=== PATIENT | female | born 1955 | race Caucasian/White ===

== ENCOUNTER 2016-07-17 14:12 | Emergency (ER) | payer SELFPAY ==
[2016-07-17 14:20] VITALS: BP 146/84
[2016-07-17] MEDS ORDERED: predniSONE TAB* 20 MG PO ONE (15:29)
--- NOTE | 2016-07-17 15:32 | UC ---
Allergic Reaction HPI - HPI Summary HPI Summary: WAS WORKING IN [employer] WHEN HAD SUDDEN ONSET OF FACIAL FLUSHING, PALPITATIONS AND HANDS FELT SWOLLEN AND HOT. UPPER LIP FELT TINGLY. NO RESPIRATORY DISTRESS. NO KNOWN TRIGGERING EXPOSURE. - History of Current Complaint Chief Complaint: UCAllergicReaction Stated Complaint: ALLERGIC REACTION Time Seen by Provider: 07/17/16 15:18 Hx Obtained From: Patient Hx Last Menstrual Period: hysterectomy Onset/Duration: Sudden Onset, Lasting Hours, Resolved - SYMPTOMS ALMOST COMPLETELY RESOLVED ABOUT AN HOUR AFTER ONSET Severity Initially: Moderate Severity Currently: Mild Pain Intensity: 4 Pain Scale Used: 0-10 Numeric Aggrevating Factor(s): Nothing Alleviating Factor(s): Nothing - SPONTANEOUS RESOLUTION Associated Signs And Symptoms: Negative: Abdominal Pain, Chest Pain, Diaphoresis , Difficulty Breathing, Nausea, Throat Tightening, Vomiting - Allergies/Home Medications Allergies/Adverse Reactions: Allergies Allergy/AdvReac Type Severity Reaction Status Date / Time No Known Allergies Allergy Verified 05/18/14 13:42 PMH/Surg Hx/FS Hx/Imm Hx Previously Healthy: Yes Endocrine History Of: Denies: Diabetes, Thyroid Disease Cardiovascular History Of: Denies: Cardiac Disorders, Hypertension Respiratory History Of: Denies: COPD, Asthma GI/ History Of: Denies: Ulcer Cancer History Of: Denies: Breast Cancer - Surgical History Surgical History: Yes Surgery Procedure, Year, and Place: hysterectomy 1995. 1984 bowel obstruction - surgical repair. jun 16 ap repair 2013 - Family History Known Family History: Positive: Hypertension, Diabetes - Social History Alcohol Use: Occasionally Substance Use Type: None Smoking Status (MU): Never Smoked Tobacco - Immunization History Most Recent Influenza Vaccination: 2016 Review of Systems Constitutional: Negative Skin: Other - FACIAL ERYTHEMA Respiratory: Negative Cardiovascular: Palpitations Gastrointestinal: Negative Genitourinary: Negative Musculoskeletal: Edema - HANDS All Other Systems Reviewed And Are Negative: Yes Physical Exam Triage Information Reviewed: Yes Appearance: Well-Appearing, No Pain Distress, Well-Nourished Vital Signs: Initial Vital Signs Temp 97.3 F 07/17/16 14:16 Pulse 98 07/17/16 14:16 Resp 18 07/17/16 14:16 BP 146/84 07/17/16 14:16 Pulse Ox 99 07/17/16 14:16 Vital Signs Reviewed: Yes Eyes: Positive: Conjunctiva Clear ENT: Positive: Hearing grossly normal, Pharynx normal Neck: Positive: Supple, Nontender, No Lymphadenopathy Respiratory Exam: Normal Cardiovascular Exam: Normal Abdomen Description: Positive: Soft Musculoskeletal: Positive: No Edema - NO SWELLING OF HANDS OR LIPS Neurological: Positive: Alert Psychological: Positive: Age Appropriate Behavior Skin: Positive: Other - CHEEKS MILDLY FLUSHED.. Negative: rashes Allergic Reaction Course/Dx - Differential Dx/Diagnosis Provider Diagnoses: ALLERGIC REACTION Discharge - Discharge Plan Condition: Stable Disposition: HOME Prescriptions: predniSONE TAB* [Deltasone TAB*] 40 mg PO DAILY #80 tab Patient Education Materials: General Allergic Reaction (ED) Referrals: Kyree Gupta MD [Primary Care Provider] - If Needed Additional Instructions: GO TO THE ER WITHOUT FAIL IF YOUR SYMPTOMS RECUR. TAKE PREDNISONE DAILY. CONTINUE YOUR ANTIHISTAMINE DAILY.
== END 2016-07-17 15:48 | disposition home or self-care (01) ==
LOC: UCEAST 14:12
DX: T78.40XA Allergy, unspecified, initial encounter (principal); X58.XXXA Exposure to other specified factors, initial encounter; R23.2 Flushing; R03.0 Elevated blood-pressure reading, without diagnosis of hypertension
CPT/HCPCS: 99212; G0463; J7512

== ENCOUNTER 2016-11-20 07:20 | Day surgery (SDC) | payer BC ==
--- NOTE | 2016-11-11 22:11 | HP ---
PREOPERATIVE HISTORY AND PHYSICAL: DATE OF OFFICE VISIT/ENCOUNTER: 11/11/16 DATE OF ADMISSION: 11/20/16 [facility] ATTENDING SURGEON: Donna Ellsworth MD (DICTATED BY CYNDI LANGFORD) PROCEDURE: Left wrist de Quervain's release. CHIEF COMPLAINT: Left wrist pain. HISTORY OF PRESENT ILLNESS: This is a 60-year-old female who has had radial- sided left wrist pain since June of 2016. 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 She denies any direct injury to this wrist. It bothers her when she extends her thumb. She denies any numbness or tingling associated with it. She has failed conservative treatment including cortisone injection and Voltaren gel. At this point, she would like to proceed with more definitive treatment for this problem and has agreed to proceed with a left wrist de Quervain's release. PAST MEDICAL HISTORY: 1. Hypertension. 2. Irritable bowel syndrome. 3. Seasonal allergies. PAST SURGICAL HISTORY: 1. Tonsillectomy. 2. Partial hysterectomy. 3. Cholecystectomy. 4. Right oophorectomy. 5. Left salpingectomy. 6. Ruptured ectopic . CURRENT MEDICATIONS: 1. Citrucel 500 mg 2 tabs twice a day p.r.n. 2. Lisinopril/hydrochlorothiazide 20/25 mg 1 tab daily. 3. Toprol-XL 50 mg daily. 4. Voltaren 1% 2 g 4 times a day p.r.n. 5. Zyrtec Allergy 10 mg daily. ALLERGIES: No known drug allergies. FAMILY MEDICAL HISTORY: Significant for COPD and emphysema. SOCIAL HISTORY: The patient has been employed by [employer] for 37 years. She currently works in the [employer] division. She denies tobacco use. She denies recreational drug use. Admits to alcohol use on rare occasion. REVIEW OF SYSTEMS: General: Negative for fevers, chills, or night sweats. No known anesthesia problems. HEENT: Negative for headache, lightheadedness, or syncopal episodes. Integumentary: Negative for abrasions, lesions, or open wounds. Cardiothoracic: Positive for hypertension. Negative for chest pain, palpitations, or edema. Pulmonary: Negative for shortness of breath with exertion, chronic cough, or COPD. GI: Positive for irritable bowel syndrome. Negative for GERD. : Negative for nocturia, urinary frequency, urgency, history of UTIs, or kidney problems. Musculoskeletal: Positive for current complaint. Negative for chronic or intermittent back pain or history of fractures. Neurological: Negative for paresthesias, numbness, history of seizure, stroke, or epilepsy. Endocrine: Negative for diabetes or thyroid issues. Hematologic: Negative for easy bruising, anemia, excessive bleeding. No history of DVT. Infectious Disease: Negative for history of MRSA, hepatitis C, or HIV. PHYSICAL EXAMINATION GENERAL: Well-developed, well-nourished 60-year-old female, in no acute distress. VITAL SIGNS: Height 5 feet 4-1/2 inches, weight 159 pounds, pulse rate 85, blood pressure 126/86. HEENT: Normocephalic, atraumatic. Pupils are equal, round, and reactive to light and accommodation. Extraocular movements are intact. Throat is clear. NECK: Supple. No palpable lymph nodes. PULMONARY: Lungs are clear to auscultation bilaterally. No wheezes, rales, or rhonchi. CARDIOTHORACIC: Regular rate and rhythm. S1, S2. No rubs or gallops. No edema. ABDOMEN: Positive bowel sounds, soft, and nontender. MUSCULOSKELETAL: On exam of the left wrist, there is mild swelling at the radial styloid compared to the right wrist. She has a positive Phoebe's on the left and tenderness to palpation at the radial styloid. She can fully flex and extend her fingers. Mild increase in pain with thumb extension. Skin is intact. Neurovascular function is intact. NEUROLOGIC: Alert and oriented x3. Cranial nerves II through XII are intact. IMAGING STUDIES: X-rays of the left wrist show minimal degenerative arthritis of the CMC joint, otherwise are normal. IMPRESSION: Left wrist de Quervain's tenosynovitis. PLAN: The patient is scheduled to undergo a left wrist de Quervain's release with Dr. Ellsworth on 11/20/16. She will return to the office in 10 to 14 days postop for followup and suture removal. A prescription for Ultracet was e- scribed to the patient's pharmacy for postoperative pain management. CYNDI LANGFORD [id number]/[facility] #: [id number] [facility]
[~2016-11-20 07:20] MED LIST: Buffered Lidocaine 0.9% SYRIN* 5 ML/SYR SYRINGE INTRADERM ONE
[2016-11-20] MEDS ORDERED: Lidocaine 1% INJ* 10 MG/ML 30 ML SDV ONE (08:13)
[2016-11-20] MEDS ORDERED: fentaNYL* 50 MCG/ML 2 ML VIAL (100 MCG VIAL) ONE (08:36)
[2016-11-20] MEDS ORDERED: Midazolam* 1 MG/ML 2 ML VIAL (2 MG) ONE (08:36)
[2016-11-20] MEDS ORDERED: Ibuprofen TAB* 600 MG ONE (10:17)
[2016-11-20 11:22] VITALS: BP 123/79
--- NOTE | 2016-11-21 10:46 | OP ---
CC: Dr. Ellsworth OPERATIVE NOTE: DATE OF OPERATION: 11/20/16 DATE OF : 57 SURGEON: Donna Ellsworth MD [employer] GR[employer] READING TEACHER: CYNDI Barajas ANESTHESIA: Local MAC. PRE-OP DIAGNOSIS: De Quervain's tenosynovitis on the left. POST-OP DIAGNOSIS: De Quervain's tenosynovitis on the left. OPERATIVE PROCEDURE: Left de Quervain's release. ESTIMATED BLOOD LOSS: Zero. TOURNIQUET TIME: About 8 minutes. INDICATION FOR PROCEDURE: Tara is a 60-year-old female with pain in her left wrist, diagnosed with de Quervain's tenosynovitis. She has failed conservative treatment including a cortisone injection. She presents for de Quervain's release. DESCRIPTION OF PROCEDURE: The patient was brought to the operating room, was given a sedation anest hetic and a local infiltration of 10 cc of 1% plain lidocaine. The skin of her left hand and forear m was prepped and draped in the usual sterile fashion. Hand and forearm were exsanguinated and the tourniquet elevated to 250 mmHg. A longitudinal incision was made centered at the radial styloid. We dissected through the subcutaneous tissue down to the first dorsal compartment. Branches of the r adial sensory nerve were located and retracted by the certified surgical technician, Alesha Park. The first dorsal compartment was incised longitudinally. The APL and EPB tendons were in separate compartmen ts with abundant tenosynovitis surrounding the tendons, this was debrided. The wound was irrigated and the skin edges were reapproximated with 4-0 nylon suture. The wound was dressed with Xeroform, 4x4, Webril, and an Westley wrap. The patient tolerated the procedure well and was brought to the [facility] in good condition. [id number]/[facility] #: [id number]
== END 2016-11-20 11:23 | disposition home or self-care (01) ==
LOC: OREAST 07:20
PROVIDERS: ATTEND Orthopaedic Surgery
DX: M65.4 Radial styloid tenosynovitis [de Quervain] (principal); I10 Essential (primary) hypertension; K58.9 Irritable bowel syndrome, unspecified
CPT/HCPCS: A9270-GY; J2001; J2250; J3010

== ENCOUNTER 2017-02-08 14:38 | Emergency (ER) | payer BC ==
[2017-02-08] MEDS ORDERED: NS 0.9% 1000 ML* 1,000 ML IV ONE (14:40)
--- NOTE | 2017-02-08 14:52 | UC ---
Syncope/New Syncope HPI - HPI Summary HPI Summary: near syncope in bath room---called to bathroom to assist a patient--patient found cold clammy awake and alert - History Of Current Complaint Chief Complaint: UCGeneralIllness Stated Complaint: PASSED OUT Time Seen by Provider: 02/08/17 14:40 Hx Obtained From: Patient Hx Last Menstrual Period: hysterectomy ?: No Onset/Duration: Sudden Onset Activity At Onset: Other - had abdomen cramps Timing: Constant Frequency: Ongoing Incidents Of Syncope For (in Mins/Days/Weeks/Years) - had episode of syncope last year seeing cardiology, Context: Witnessed Associated Head Trauma: No Aggravating Factor(s): Nothing Alleviating Factor(s): Spontaneous Resolution, Position Change Associated Signs And Symptoms: Positive: Diaphoresis, Lightheadedness, Other - abd cramps - Allergies/Home Medications Allergies/Adverse Reactions: Allergies Allergy/AdvReac Type Severity Reaction Status Date / Time No Known Allergies Allergy Verified 11/20/16 07:37 PMH/Surg Hx/FS Hx/Imm Hx Previously Healthy: No Cardiovascular History: Hypertension, Other - syncope Other Cardiovascular History: syncope - Surgical History Surgical History: Yes Surgery Procedure, Year, and Place: hysterectomy 1995. 1985 bowel obstruction - surgical repair. 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 MORE SURGERIES - Family History Known Family History: Positive: Hypertension, Diabetes - Social History Occupation: Employed Full-time Lives: With Family Alcohol Use: None Substance Use Type: None Smoking Status (MU): Never Smoked Tobacco Have You Smoked in the Last Year: No - Immunization History Most Recent Influenza Vaccination: 2016 Review of Systems Constitutional: Negative Skin: Negative Eyes: Negative ENT: Negative Respiratory: Negative Cardiovascular: Negative Gastrointestinal: Abdominal Pain, Diarrhea Genitourinary: Negative Motor: Negative Neurovascular: Negative Musculoskeletal: Negative Neurological: Negative, Weakness Psychological: Negative Is Patient Immunocompromised?: No All Other Systems Reviewed And Are Negative: Yes Physical Exam Triage Information Reviewed: Yes Appearance: Ill-Appearing, Pain Distress, Thin Vital Signs Reviewed: Yes Eye Exam: Normal Eyes: Positive: Conjunctiva Clear ENT Exam: Normal ENT: Positive: Normal ENT inspection, Hearing grossly normal. Negative: Nasal congestion, Nasal drainage Dental Exam: Normal Neck exam: Normal Neck: Positive: Supple, Nontender Respiratory Exam: Normal Respiratory: Positive: Chest non-tender, No respiratory distress, No accessory muscle use Cardiovascular Exam: Normal Cardiovascular: Positive: RRR, Pulses Normal, Brisk Capillary Refill Musculoskeletal Exam: Normal Musculoskeletal: Positive: Strength Limited @ Neurological Exam: Normal Neurological: Positive: Alert Psychological Exam: Normal Skin Exam: Normal - clammy,cool Skin: Positive: Other Diagnostics - EKG Cardiac Rate: NL Cardiac Rhythm: Sinus: Normal Ectopy: None ST Segment: Non-Specific Syncope Course/Dx - Course Course Of Treatment: ekg, iv, transfer to [facility] - Differential Dx/Diagnosis Provider Diagnoses: near syncope Discharge - Discharge Plan Condition: Guarded Disposition: TRANS HIGHER L OF CARE FAC
[2017-02-08 15:05] VITALS: BP 119/69
== END 2017-02-08 14:56 | disposition short-term general hospital (02) ==
LOC: UCEAST 14:38
DX: R55 Syncope and collapse (principal); I10 Essential (primary) hypertension
CPT/HCPCS: 93005; 99213; G0463

== ENCOUNTER 2017-02-08 15:09 | Emergency (ER) | payer BC ==
[2017-02-08 16:54] LABS: Hematocrit 41 % (35-47); Hemoglobin 14.3 g/dl (12.0-16.0); Mean Corpuscular HGB Conc 35 g/dl (31-36); Mean Corpuscular Hemoglobin 31 pg (27-31); Mean Corpuscular Volume 88 fL (80-97); Mean Platelet Volume 8 um3 (7.4-10.4); Red Blood Count 4.67 10^6/ul (4.0-5.4); Red Cell Distribution Width 13 % (10.5-15); White Blood Count 9.1 10^3/ul (3.5-10.8)
[2017-02-08 17:09] LABS: Albumin 4.8 g/dL (3.2-5.2); BUN/Creatinine Ratio 26.5 (8-20); Calcium 10.5 mg/dL (8.6-10.3); EGFR African American 52.8 (>60); EGFR Non-African American 41.1 (>60); Globulin 2.9 g/dL (2-4); Magnesium 2.1 mg/dL (1.9-2.7); Total Bilirubin 0.5 mg/dL (0.2-1.0); Total Protein 7.7 g/dL (6.4-8.9)
[2017-02-08 17:10] LABS: Potassium 3.6 mmol/L (3.5-5.0)
[2017-02-08 17:11] LABS: Troponin I 0.01 ng/mL (<0.04)
[2017-02-08 17:24] LABS: TSH (Thyroid Stimulating Horm) 8.02 mcIU/mL (0.34-5.60)
[2017-02-08 18:28] LABS: Urine Bacteria 3+ (Absent); Urine Bilirubin Negative (Negative); Urine Glucose Negative (Negative); Urine Nitrite Negative (Negative)
[2017-02-08] MEDS: NS 0.9% 1000 ML* 2,000 ML IV ONE ×2 (18:34→19:30)
--- NOTE | 2017-02-08 18:57 | ED ---
Nadege Gonzalez Nilda, scribed for Anirudh Wyman MD on 02/08/17 at 1637 . Syncope/Near Syncope - HPI Summary HPI Summary: This patient is a 61 year old F BIBA to [facility] accompanied by with a chief complaint of 2 episodes of witnessed near syncope while having BMs today at approximately 1330 (3 hours ago). The patient rates the pain 0/10 in severity. Symptoms aggravated by straining during BM and alleviated by spontaneous resolution. Patient reports dizziness, tingling in fingers, facial erythema which eventually resolved and became pallor, and foot cramping. She states that she has had similar episodes before but not this severe. PMHx of IBS. - History Of Current Complaint Chief Complaint: EDSyncope Time Seen by Provider: 02/08/17 16:04 Hx Obtained From: Patient Onset/Duration: Sudden Onset, Resolved Context: Witnessed Activity At Onset: Other - Straining during BM Associated Head Trauma: No Aggravating Factor(s): Other - Straining during BM Alleviating Factor(s): Spontaneous Resolution Associated Signs And Symptoms: Other - dizziness, tingling in fingers, facial erythema (resolved), pallor, foot cramping - Allergies/Home Medications Allergies/Adverse Reactions: Allergies Allergy/AdvReac Type Severity Reaction Status Date / Time No Known Allergies Allergy Verified 11/20/16 07:37 Home Medications: Home Medications Acyclovir OINT 5%(NF) [Zovirax Oint 5%(NF)] 1 applic TOPICAL Q4HR 02/08/17 [ History Confirmed 02/08/17] Cetirizine* [ZyrTEC 10 MG TAB*] 10 mg PO DAILY 02/08/17 [History Confirmed 02/08] Fluticasone NASAL SPRAY 50MCG* [Flonase NASAL SPRAY 50MCG*] 2 spray BOTH NARES DAILY 02/08/17 [History Confirmed 02/08/17] Lisinopril/HCTZ 20/25(NF) [Zestoretic 20/25(NF)] 1 tab PO DAILY 02/08/17 [ History Confirmed 02/08/17] Metoprolol Succinate XL TAB* [Toprol XL TAB*] 50 mg PO DAILY 02/08/17 [History Confirmed 02/08/17] PMH/Surg Hx/FS Hx/Imm Hx Endocrine/Hematology History: Denies: Hx Diabetes, Hx Thyroid Disease Cardiovascular History: Reports: Hx Hypertension - ON MEDICATION FOR, Other Cardiovascular Problems/Disorders - SYNCOPAL EPISODE 03/2016- STATES HAD A NEGATIVE WORK UP- DR. ELLIS Denies: Hx Pacemaker/ICD Respiratory History: Reports: Hx Sleep Apnea - MILD Denies: Hx Asthma, Hx Chronic Obstructive Pulmonary Disease (COPD) GI History: Reports: Hx Irritable Bowel Denies: Hx Ulcer Musculoskeletal History: Reports: Hx Tendonitis - HX OF IN RT ELBOW Sensory History: Denies: Hx Contacts or Glasses, Hx Hearing Aid Opthamlomology History: Denies: Hx Contacts or Glasses - Cancer History Hx Chemotherapy: No Hx Radiation Therapy: No - Surgical History Surgery Procedure, Year, and Place: hysterectomy 1995. 1985 bowel obstruction - surgical repair. [employer]- ap repair 2013. MORE SURGERIES Hx Anesthesia Reactions: Yes - NAUSEA, STATES SLOW FOR ANESTHESIA TO TAKE EFFECT AND WEAR OFF Infectious Disease History: No Infectious Disease History: Denies: Hx Clostridium Difficile, Hx Hepatitis, Hx Human Immunodeficiency Virus (HIV), Hx of Known/Suspected MRSA, Hx Shingles, Hx Tuberculosis, Hx Known/ Suspected VRE, Hx Known/Suspected VRSA, History Other Infectious Disease, Traveled Outside the [place] in Last 30 Days - Family History Known Family History: Positive: Hypertension Negative: Diabetes - Social History Alcohol Use: None Substance Use Type: Reports: None Smoking Status (MU): Never Smoked Tobacco Have You Smoked in the Last Year: No Review of Systems Positive: Other - facial erythema initially but then turned pallor (resolved) Positive: Other - foot cramping Neurological: Other - dizziness (resolved) Positive: Paresthesia - fingers (resolved), Syncope - near syncope (resolved) All Other Systems Reviewed And Are Negative: Yes Physical Exam Triage Information Reviewed: Yes Vital Signs On Initial Exam: Initial Vitals Temp Pulse Resp BP Pulse Ox 97.8 F 87 20 116/66 98 02/08/17 15:19 02/08/17 15:19 02/08/17 15:19 02/08/17 15:19 02/08/17 15:19 Vital Signs Reviewed: Yes Appearance: Positive: Well-Appearing, No Pain Distress Skin: Positive: Warm, Skin Color Reflects Adequate Perfusion, Dry Head/Face: Positive: Normal Head/Face Inspection Eyes: Positive: Normal ENT: Positive: Normal ENT inspection Neck: Positive: Supple, Nontender Respiratory/Lung Sounds: Positive: Clear to Auscultation, Breath Sounds Present Cardiovascular: Positive: RRR Abdomen Description: Positive: Nontender, Soft Bowel Sounds: Positive: Present Musculoskeletal: Positive: Normal Neurological: Positive: Normal Psychiatric: Positive: Normal, Affect/Mood Appropriate Diagnostics - Vital Signs Vital Signs Temp Pulse Resp BP Pulse Ox 02/08/17 16:00 83 14 108/68 97 02/08/17 15:30 87 17 113/72 98 02/08/17 15:22 85 14 116/66 97 02/08/17 15:19 97.8 F 85 20 116/66 98 - Laboratory Lab Results: Lab Results 02/08/17 02/08/17 02/08/17 Range/Units 14:45 14:45 18:08 WBC 9.1 (3.5-10.8) 10^3/ul RBC 4.67 (4.0-5.4) 10^6/ul Hgb 14.3 (12.0-16.0) g/dl Hct 41 (35-47) % MCV 88 (80-97) fL MCH 31 (27-31) pg MCHC 35 (31-36) g/dl RDW 13 (10.5-15) % Plt Count 379 (150-450) 10^3/ul MPV 8 (7.4-10.4) um3 Neut % (Auto) 48.7 (38-83) % Lymph % (Auto) 40.6 (25-47) % [place] % (Auto) 8.0 (1-9) % Eos % (Auto) 2.2 (0-6) % Baso % (Auto) 0.5 (0-2) % Absolute Neuts (auto) 4.4 (1.5-7.7) 10^3/ul Absolute Lymphs (auto) 3.7 (1.0-4.8) 10^3/ul Absolute Monos (auto) 0.7 (0-0.8) 10^3/ul Absolute Eos (auto) 0.2 (0-0.6) 10^3/ul Absolute Basos (auto) 0 (0-0.2) 10^3/ul Absolute Nucleated RBC 0.01 10^3/ul Nucleated RBC % 0.1 Sodium 134 (133-145) mmol/L Potassium 3.6 (3.5-5.0) mmol/L Chloride 97 L (101-111) mmol/L Carbon Dioxide 22 (22-32) mmol/L Anion Gap 15 H (2-11) mmol/L BUN 35 H (6-24) mg/dL Creatinine 1.32 H (0.51-0.95) mg/dL Est GFR ( Amer) 52.8 (>60) Est GFR (Non-Af Amer) 41.1 (>60) BUN/Creatinine Ratio 26.5 H (8-20) Glucose 114 H (70-100) mg/dL Calcium 10.5 H (8.6-10.3) mg/dL Magnesium 2.1 (1.9-2.7) mg/dL Total Bilirubin 0.50 (0.2-1.0) mg/dL AST 41 H (13-39) U/L ALT 53 H (7-52) U/L Alkaline Phosphatase 72 (34-104) U/L Troponin I 0.01 (<0.04) ng/mL Total Protein 7.7 (6.4-8.9) g/dL Albumin 4.8 (3.2-5.2) g/dL Globulin 2.9 (2-4) g/dL Albumin/Globulin Ratio 1.7 (1-3) TSH 8.02 H (0.34-5.60) mcIU/mL Urine Color Yellow Urine Appearance Clear Urine pH 6.0 (5-9) Ur Specific [place] 1.004 L (1.010-1.030) Urine Protein Negative (Negative) Urine Ketones Negative (Negative) Urine Blood Negative (Negative) Urine Nitrate Negative (Negative) Urine Bilirubin Negative (Negative) Urine Urobilinogen Negative (Negative) Ur Leukocyte Esterase Trace H (Negative) Urine WBC (Auto) 1+(6-10/hpf) H (Absent) Urine RBC (Auto) Absent (Absent) Ur Squamous Epith Cells Present H (Absent) Urine Bacteria 3+ H (Absent) Urine Glucose Negative (Negative) Result Diagrams: 02/08/17 14:45 02/08/17 14:45 Lab Statement: Any lab studies that have been ordered have been reviewed, and results considered in the medical decision making process. - EKG 1638 Cardiac Rate: NL - 83 bpm EKG Rhythm: Sinus Rhythm ST Segment: Normal Course/Dx Course Of Treatment: Ms. Gallardo had two near syncopal episodes today while moving her bowels. She was monitored here with pathology and was found to be quite dehydrated. She is being rehydrated and will go home. - Diagnoses Provider Diagnoses: Vaso vagal episode, Near syncope Discharge - Discharge Plan Condition: Stable Disposition: HOME Referrals: Kyree Gupta MD [Primary Care Provider] - The documentation as recorded by the Nadege gibson Nilda accurately reflects the service I personally performed and the decisions made by , Anirudh Wyman MD.
[2017-02-08 20:04] VITALS: BP 152/77
--- NOTE | 2017-02-11 08:33 | PN ---
Progress Note - Progress Note Date of Service: 02/11/17 Note: Patient urine culture grew Klebseilla pneumonia >100,000 and placed on cipro which is sensitive to. no further action needed
== END 2017-02-08 20:24 | disposition home or self-care (01) ==
LOC: ED 15:09
DX: R55 Syncope and collapse (principal)
CPT/HCPCS: 36415; 80053; 81003; 81015; 83735; 84443; 84484; 85025; 87077; 87086; 87186; 93005; 99283

== ENCOUNTER 2018-11-08 17:49 | Emergency (ER) | payer BC ==
[2018-11-08 18:16] VITALS: BP 154/94
--- NOTE | 2018-11-08 20:22 | UC ---
Cardiac HPI - HPI Summary HPI Summary: 62-year-old female comes in with a chief complaint of right lower lateral chest pain. First noticed the pain about 3 weeks ago. Pain is worse with twisting turning bending and palpation. It is not worse with deep inspiration. No shortness of breath no cough or chest congestion. No changes in urine or bowels. Denies any abdominal pain. No loss of appetite. No rash. 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 1985 bowel obstruction - surgical repair. 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 MORE SURGERIES - Family History Known Family History: Positive: Hypertension Negative: Diabetes - Social History Alcohol Use: Rare Substance Use Type: None Smoking Status (MU): Never Smoked Tobacco Have You Smoked in the Last Year: No - Immunization History Most Recent Influenza Vaccination: 2016 Review of Systems All Other Systems Reviewed And Are Negative: Yes Constitutional: Positive: Negative Skin: Positive: Negative Eyes: Positive: Negative ENT: Positive: Negative Respiratory: Positive: Negative Cardiovascular: Positive: Chest Pain Gastrointestinal: Positive: Negative Genitourinary: Positive: Negative Motor: Positive: Negative Neurovascular: Positive: Negative Musculoskeletal: Positive: Negative Neurological: Positive: Negative Psychological: Positive: Negative Is Patient Immunocompromised?: No Physical Exam Triage Information Reviewed: Yes Appearance: Well-Appearing, No Pain Distress, Well-Nourished Vital Signs: Initial Vital Signs Temp 97.7 F 11/08/18 18:08 Pulse 69 11/08/18 18:08 Resp 16 11/08/18 18:08 BP 154/94 11/08/18 18:08 Pulse Ox 100 11/08/18 18:08 Vital Signs Reviewed: Yes Eye Exam: Normal Eyes: Positive: Conjunctiva Clear Neck: Positive: Supple Respiratory: Positive: Lungs clear, Normal breath sounds, No respiratory distress, Other: - Patient is tender to palpation right lower lateral ribs. There is no rash in the area. No flank tenderness. Abdomen is soft and nontender. Cardiovascular: Positive: RRR Abdomen Description: Positive: Nontender, Soft. Negative: CVA Tenderness (R), CVA Tenderness (L) Bowel Sounds: Positive: Present Musculoskeletal Exam: Normal Musculoskeletal: Positive: Strength Intact, ROM Intact Neurological Exam: Normal Neurological: Positive: Alert, Muscle Tone Normal Psychological Exam: Normal Psychological: Positive: Age Appropriate Behavior Skin Exam: Normal - Clinical Impression Provider Diagnosis: Right-sided chest pain Discharge - Sign-Out/Discharge Documenting (check all that apply): Patient Departure All imaging exams completed and their final reports reviewed: No - Discharge Plan Condition: Stable Disposition: HOME Prescriptions: Ibuprofen 600 mg PO Q6HR PRN #30 tablet PRN Reason: Pain Lidocaine PATCH 5%* [Lidoderm 5% Patch*] 1 patch TRANSDERM DAILY #10 patch Patient Education Materials: Chest Pain (ED), Chest Wall Pain (ED) Forms: *Work Release Referrals: Kyree Gupta MD [Primary Care Provider] - Additional Instructions: FOLLOW UP WITH YOUR DOCTOR. GO TO THE EMERGENCY DEPARTMENT IF YOUR CONDITION WORSENS; PAIN, SHORTNESS OF BREATH, FEVER, YOU FEEL ILL OR ANY QUESTIONS OR CONCERNS. - Billing Disposition and Condition Condition: STABLE Disposition: Home
--- NOTE | 2018-11-09 08:39 | UC ---
- Progress Note Progress Note: wet read correct Course/Dx - Diagnoses Provider Diagnoses: Right-sided chest pain Discharge - Sign-Out/Discharge Documenting (check all that apply): Post-Discharge Follow Up All imaging exams completed and their final reports reviewed: Yes - Discharge Plan Condition: Stable Disposition: HOME Prescriptions: Ibuprofen 600 mg PO Q6HR PRN #30 tablet PRN Reason: Pain Lidocaine PATCH 5%* [Lidoderm 5% Patch*] 1 patch TRANSDERM DAILY #10 patch Patient Education Materials: Chest Pain (ED), Chest Wall Pain (ED) Forms: *Work Release Referrals: Kyree Gupta MD [Primary Care Provider] - Additional Instructions: FOLLOW UP WITH YOUR DOCTOR. GO TO THE EMERGENCY DEPARTMENT IF YOUR CONDITION WORSENS; PAIN, SHORTNESS OF BREATH, FEVER, YOU FEEL ILL OR ANY QUESTIONS OR CONCERNS. - Billing Disposition and Condition Condition: STABLE Disposition: Home
== END 2018-11-08 21:20 | disposition home or self-care (01) ==
LOC: UCEAST 17:49
DX: R07.89 Other chest pain (principal); I10 Essential (primary) hypertension
CPT/HCPCS: 81003; 99212; G0463

== ENCOUNTER 2019-03-29 16:52 | Emergency (ER) | payer BC ==
--- NOTE | 2019-03-29 17:53 | ED ---
GI/ HPI - HPI Summary HPI Summary: Patient is a 63 year old female who presents with 3-4 weeks of intermittent abdominal pain. She states the pain is located in the left lower quadrant and occurs 2-3 times daily. The pain lasts minutes and then improves. She has not been taking anything for the pain. Not associated with N/V/D. Denies urinary frequency, dysuria, hematuria. Denies fever. She has seen her PCP, Dr. Gupta, for this who sent her to the ED for a CT scan. Patient has had a negative ultrasound. Has had total hysterectomy, appendectomy and colon resect. Patient states she had last colonoscopy a few years ago and is due for one in 2019. 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 ELLIS Denies: Hx Pacemaker/ICD Respiratory History: Reports: Hx Sleep Apnea - MILD Denies: Hx Asthma, Hx Chronic Obstructive Pulmonary Disease (COPD) GI History: Reports: Hx Irritable Bowel Denies: Hx Ulcer Musculoskeletal History: Reports: Hx Tendonitis - HX OF IN RT ELBOW Sensory History: Denies: Hx Contacts or Glasses, Hx Hearing Aid Opthamlomology History: Denies: Hx Contacts or Glasses - Cancer History Hx Chemotherapy: No Hx Radiation Therapy: No - Surgical History Surgery Procedure, Year, and Place: hysterectomy 1995. 1985 bowel obstruction - surgical repair. 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 MORE SURGERIES Hx Anesthesia Reactions: Yes - NAUSEA, STATES SLOW FOR ANESTHESIA TO TAKE EFFECT AND WEAR OFF Infectious Disease History: No Infectious Disease History: Denies: Hx Clostridium Difficile, Hx Hepatitis, Hx Human Immunodeficiency Virus (HIV), Hx of Known/Suspected MRSA, Hx Shingles, Hx Tuberculosis, Hx Known/ Suspected VRE, Hx Known/Suspected VRSA, History Other Infectious Disease, Traveled Outside the [place] in Last 30 Days - Family History Known Family History: Positive: Hypertension Negative: Diabetes - Social History Alcohol Use: Rare Substance Use Type: Reports: None Smoking Status (MU): Never Smoked Tobacco Have You Smoked in the Last Year: No Review of Systems Constitutional: Negative Eyes: Negative ENT: Negative Cardiovascular: Negative Respiratory: Negative Positive: Abdominal Pain. Negative: Vomiting, Diarrhea, Nausea Genitourinary: Negative Musculoskeletal: Negative Skin: Negative Neurological: Negative Psychological: Normal All Other Systems Reviewed And Are Negative: Yes Physical Exam Triage Information Reviewed: Yes Vital Signs On Initial Exam: Initial Vitals Temp Pulse Resp BP Pulse Ox 97.5 F 73 14 165/95 98 03/29/19 17:00 03/29/19 17:00 03/29/19 17:00 03/29/19 17:00 03/29/19 17:00 Vital Signs Reviewed: Yes Appearance: Positive: Well-Appearing, No Pain Distress, Well-Nourished Skin: Positive: Warm, Skin Color Reflects Adequate Perfusion, Dry Head/Face: Positive: Normal Head/Face Inspection Eyes: Positive: Normal, EOMI, RUBINA ENT: Positive: Normal ENT inspection Neck: Positive: Supple, Nontender Respiratory/Lung Sounds: Positive: Clear to Auscultation, Breath Sounds Present Cardiovascular: Positive: Normal, RRR, S1, S2 Abdomen Description: Positive: Nontender, Soft Bowel Sounds: Positive: Present Musculoskeletal: Positive: Normal Neurological: Positive: Normal Psychiatric: Positive: Normal, Affect/Mood Appropriate Procedures - Sedation Patient Received Moderate/Deep Sedation with Procedure: No Diagnostics - Vital Signs Vital Signs Temp Pulse Resp BP Pulse Ox 03/29/19 17:00 97.5 F 73 14 165/95 98 - Laboratory Result Diagrams: 03/29/19 18:06 03/29/19 18:06 Lab Statement: Any lab studies that have been ordered have been reviewed, and results considered in the medical decision making process. - CT abd CT Interpretation Completed By: Radiologist Summary of CT Findings: IMPRESSION: 1. No CT findings to correlate with patient' s symptomatology. 2. Congenital small bowel malrotation. No associated volvulus. GIGU Course/Dx - Course Course Of Treatment: 63 year old female with intermittent LLQ pain for 1 month. Sent to ED by PCP for CT scan of abdomen. ROS negative for fever, N/V/D, urinary symptoms. Abdomen soft, non-tender with normoactive bowel sounds. wbc normal. crp normal. CT shows no acute pathology. will have follow up with GI. patient understand and agrees with plan. - Diagnoses Differential Diagnoses - Female: Colitis, Diverticulosis, Urinary Tract Infection Provider Diagnoses: Abdominal pain Discharge ED - Sign-Out/Discharge Documenting (check all that apply): Patient Departure - Discharge Plan Condition: Good Disposition: HOME Patient Education Materials: Acute Abdominal Pain (ED) Referrals: Kyree Gupta MD [Primary Care Provider] - Gian Serrano MD [Medical Doctor] - Additional Instructions: follow up with GI take tyenlol as needed for pain Return to ED if develop any new or worsening symptoms - Billing Disposition and Condition Condition: GOOD Disposition: Home - Attestation Statements Provider Attestation: I was available for consult. This patient was seen by the JIMENA. The patient was not presented to, seen by, or examined by me. Pablo Reyes MD
[2019-03-29 18:21] LABS: ABS Eosinophils 0.2 10^3/ul (0-0.6); ABS Lymphocytes 1.5 10^3/ul (1.0-4.8); ABS Monocytes 0.5 10^3/ul (0-0.8); Eosinophil % 3.3 %; Hematocrit 40 % (35-47); Hemoglobin 13.9 g/dL (12.0-16.0); Lymphocyte % 28.7 %; Mean Corpuscular HGB Conc 35 g/dL (31-36); Mean Corpuscular Hemoglobin 31 pg (27-31); Mean Corpuscular Volume 89 fL (80-97); Mean Platelet Volume 7.4 fL (7.4-10.4); Nucleated Red Blood Cells % 0.1; Platelet Count 300 10^3/uL (150-450); Red Blood Count 4.43 10^6 /uL (3.70-4.87); Red Cell Distribution Width 13 % (10-15); White Blood Count 5.1 10^3/uL (3.5-10.8)
[2019-03-29 18:39] LABS: Albumin 4.6 g/dL (3.2-5.2); BUN/Creatinine Ratio 35.8 (8-20); C Reactive Protein 1.61 mg/L (<8.01); Calcium 10.1 mg/dL (8.6-10.3); EGFR African American 86.7 (>60); EGFR Non-African American 71.6 (>60); Globulin 2.3 g/dL (2-4); Potassium 3.9 mmol/L (3.5-5.0); Total Bilirubin 0.5 mg/dL (0.2-1.0); Total Protein 6.9 g/dL (6.4-8.9)
[2019-03-29] MEDS ORDERED: Iohexol 300* (CONTRAST) 10 ML SDV IV ONE (19:34)
[2019-03-29 20:36] LABS: Urine Appearance Clear; Urine Bilirubin Negative (Negative); Urine Blood Negative (Negative); Urine Color Straw; Urine Glucose Negative (Negative); Urine Ketones Negative (Negative); Urine Nitrite Negative (Negative); Urine Protein Negative (Negative); Urine Specific Gravity 1.008 (1.010-1.030); Urine Urobilinogen Negative (Negative)
[2019-03-29 21:08] VITALS: BP 0/0
== END 2019-03-29 21:01 | disposition home or self-care (01) ==
LOC: ED 16:52
DX: R10.9 Unspecified abdominal pain (principal); I10 Essential (primary) hypertension; Z90.710 Acquired absence of both cervix and uterus; Z90.89 Acquired absence of other organs
CPT/HCPCS: 36415; 74177; 80053; 81003; 83690; 85025; 86140; 99282; Q9967